=== PATIENT | female | born 1975 | race Caucasian/White ===

== ENCOUNTER 2022-01-16 05:15 | Day surgery (SDC) | payer BC ==
[2022-01-14 11:46] LABS: BASOPHILS # (AUTO) 0.1 K/uL (0.0-0.2); BASOPHILS % (AUTO) 0.7 % (0.0-2.0); EOSINOPHILS # (AUTO) 0.7 K/uL (0.0-0.4); EOSINOPHILS % (AUTO) 8.4 % (0.0-4.0); HEMATOCRIT 38.5 % (36-48); LYMPHOCYTES # (AUTO) 2.3 K/uL (1.0-5.5); LYMPHOCYTES % (AUTO) 28.3 % (20.5-51.5); MEAN CORPUSCULAR HEMOGLOBIN 30 pg (27-31); MEAN CORPUSCULAR HGB CONC 34 % (32-36); MEAN CORPUSCULAR VOLUME 89 fL (79.0-98.0); MONOCYTES # (AUTO) 0.5 K/uL (0.0-1.0); MONOCYTES % (AUTO) 5.7 % (1.7-9.3); NEUTROPHILS # (AUTO) 4.6 K/uL (1.8-7.7); NEUTROPHILS % (AUTO) 56.9 % (40.0-70.0); PLATELET COUNT (AUTO) 326 K/uL (130-430); RED BLOOD CELL COUNT(AUTO) 4.33 MIL/uL (4.2-6.2); RED CELL DISTRIBUTION WIDTH 14.5 % (9.0-15.0)
[2022-01-14 12:08] LABS: BILIRUBIN,URINE NEGATIVE (NEGATIVE); CLARITY/URINE CLEAR (CLEAR); COLOR,URINE YELLOW (YELLOW); GLUCOSE,URINE NEGATIVE (NEGATIVE); KETONES,URINE NEGATIVE (NEGATIVE); LEUKOCYTE ESTERASE ,URINE NEGATIVE (NEGATIVE); NITRITE, URINE NEGATIVE (NEGATIVE); PH,URINE 6.5 (5.0-8.0); PROTEIN URINE NEGATIVE (NEGATIVE); UROBILINOGEN,URINE 0.2 (0.2-1.0)
[2022-01-14 12:10] LABS: BLOOD, URINE TRACE (NEGATIVE)
[2022-01-14 12:54] LABS: BACTERIA,URINE None Seen /HPF (None Seen); RBC,URINE 0-3 /HPF (0-3); WBC,URINE 0-3 /HPF (0-3)
[2022-01-14 13:19] LABS: ALBUMIN 3.8 g/dL (3.4-4.8); CALCIUM 9.1 mg/dL (8.4-11.0); CREATININE 0.91 mg/dL (0.55-1.30); POTASSIUM 4.3 mmol/L (3.5-5.1); TOTAL BILIRUBIN 0.4 mg/dL (0.0-1.0)
[~2022-01-16] VITALS: Ht 172.7 cm; Wt 72.1 kg
[2022-01-16] MEDS ORDERED: ceFAZolin SODIUM 2 GM in D5W 50 ML IV ONE (07:30)
[2022-01-16] MEDS ORDERED: ROPIVACAINE HCL/PF 0.2% EPIDURAL 100 ML PLAST..BAG ONE (07:45)
[2022-01-16] MEDS ORDERED: LR 1,000 ML IV.SOLN IV ONE (07:45)
[2022-01-16] MEDS ORDERED: MIDAZOLAM HCL 2 MG/2 ML VIAL (VERSED) ONE (07:45)
[2022-01-16] MEDS ORDERED: FUROSEMIDE 40 MG/4 ML VIAL ONE (07:45)
[2022-01-16] MEDS ORDERED: DEXAMETHASONE SOD PHOSPHATE 4 MG/ML VIAL ONE (07:45)
[2022-01-16] MEDS ORDERED: DESFLURANE 15 MIN GAS INH ONE (07:45)
[2022-01-16] MEDS ORDERED: BUPIVACAINE /PF 0.25% 30 ML VIAL INJ ONE (07:45)
[2022-01-16] MEDS ORDERED: KETOROLAC TROMETHAMINE 30 MG VIAL ONE ×2 (07:45→12:56)
[2022-01-16] MEDS ORDERED: PROPOFOL 200MG/ 20ML VIAL (DIPRIVAN) IV ONE (07:45)
[2022-01-16] MEDS ORDERED: SUGAMMADEX SODIUM 200 MG/2 ML VIAL IV ONE (07:45)
[2022-01-16] MEDS ORDERED: NS IRRIG SOLN 1000 ML IR ONE (07:45)
[2022-01-16] MEDS ORDERED: fentaNYL CITRATE/PF 100 MCG/2 ML AMP ONE (07:45)
[2022-01-16] MEDS ORDERED: ROCURONIUM BROMIDE 10 MG/ML (ZEMURON) ONE (07:45)
[2022-01-16] MEDS ORDERED: ONDANSETRON HCL 4 MG/2 ML VIAL ONE (07:45)
[2022-01-16] MEDS ORDERED: ACETAMINOPHEN I.V. 1000 MG 100 ML IV ONE (08:19)
[2022-01-16] MEDS ORDERED: METOCLOPRAMIDE HCL 10 MG/2 ML VIAL IVP PRN (09:00)
[2022-01-16] MEDS ORDERED: hydrALAZINE HCL 20 MG/ML VIAL IVP PRN (09:00)
[2022-01-16] MEDS ORDERED: LABETALOL 100 MG/ 20ML VIAL IVP PRN (09:00)
[2022-01-16] MEDS ORDERED: MEPERIDINE HCL/PF 25 MG/ML DISP.SYRIN IVP PRN (09:00)
[2022-01-16] MEDS ORDERED: HYDROmorphone 1 MG/ML INJ. CARTRIDGE IVP PRN (09:00)
[2022-01-16] MEDS ORDERED: MIDAZOLAM HCL 2 MG/2 ML VIAL (VERSED) IVP PRN (09:00)
[2022-01-16] MEDS ORDERED: LR 1,000 ML IV SCH (09:00)
[2022-01-16] MEDS ORDERED: HYDROcodone/ACETAMIN 5-325 MG TAB (NORCO/ VICODIN) PO PRN (10:30)
[2022-01-16] MEDS ORDERED: ONDANSETRON HCL 4 MG/2 ML VIAL IVP PRN (10:30)
[2022-01-16] MEDS ORDERED: OXYCODONE/ACETAMINOPHEN 5-325 TABLET PO PRN ×2 (10:30)
[2022-01-16] MEDS: HYDROmorphone 1 MG/ML INJ. CARTRIDGE IVP PRN ×3 (11:00→11:36)
[2022-01-16] MEDS ORDERED: HYDROmorphone 1 MG/ML INJ. CARTRIDGE ONE ×2 (11:00→11:38)
[2022-01-16 12:00] VITALS: BP_SYST 109
[2022-01-16] MEDS ORDERED: KETOROLAC TROMETHAMINE 30 MG VIAL IVP ONE (13:00)
== END 2022-01-16 15:45 | disposition home or self-care (01) ==
LOC: SDS 05:15 → SMU 05:15 → SDS 15:45
PROVIDERS: ATTEND Specialist
DX: N92.0 Excessive and frequent menstruation with regular cycle (principal); D25.1 Intramural leiomyoma of uterus; N72 Inflammatory disease of cervix uteri; D26.0 Other benign neoplasm of cervix uteri; R10.2 Pelvic and perineal pain; N93.8 Other specified abnormal uterine and vaginal bleeding; Z98.890 Other specified postprocedural states; Z88.0 Allergy status to penicillin; Z88.1 Allergy status to other antibiotic agents; Z79.899 Other long term (current) drug therapy
CPT/HCPCS: 71046; 80053; 81000; 84703; 85025; 36415 ×2; 93005; 58552; 88307; 87426; 64488; U0003; J3490 ×2; J1100; J1940; J1885; J3465; J2405; J2704; J2795; J3010; J1170; J7060; J7120; C1727; J0131; S2900; E0190

== ENCOUNTER 2022-01-22 08:45 | Inpatient (IN) | payer BC ==
[~2022-01-22] VITALS: Ht 172.7 cm; Wt 74.6 kg
--- NOTE | 2022-01-22 08:45 | NUR ---
RECEIVED PT FROM ADIN HOFFMAN. PT S/P HYSTERECTOMY OVER ONE WEEK AGO AND STATES SHE HAS INCREASED BLOATING AND DISCOMFORT. PT STATES LAST BM WAS 2 DAYS AGO, DENIES N/V/D/C. RESP E/U. ON R/A. HR 120. PT STATES PAIN 5/10 ABODMEN. PT HAS 5 SURGICAL SITE COVERED WITH STERI-STIPS ALL CDI, WITH ECCYMOSIS NOTED AND EACH SITE BUT NO S/S REDNESS OR SWELLING. PT AT BEDSIDE. SIDERAILS UP X2.
--- NOTE | 2022-01-22 08:47 | NUR ---
Patient to ER bed 04 for evaluation. Side rails up. Report given to ADIN Ross.
[2022-01-22 09:00] VITALS: BP_SYST 120
--- NOTE | 2022-01-22 09:25 | NUR ---
DR. QUINONEZ AT BEDSIDE TO ASSESS PT.
[2022-01-22] MEDS ORDERED: MORPHINE 4 MG INJ. 4 MG/ML VIAL IVP ONE ×2 (09:45)
[2022-01-22] MEDS ORDERED: NACL 0.9% 2,000 ML IV ONE (09:45)
[2022-01-22] MEDS ORDERED: ONDANSETRON HCL 4 MG/2 ML VIAL IVP ONE ×2 (09:45)
[2022-01-22] MEDS ORDERED: CEFEPIME 2 GM in D5W 100 ML IV ONE (09:45)
[2022-01-22] MEDS ORDERED: metroNIDAZOLE 500 mg/NS 100 ML IV ONE (09:45)
--- NOTE | 2022-01-22 09:58 | NUR ---
LABS AND URINE OBTAINED.
[2022-01-22] MEDS ORDERED: KETOROLAC TROMETHAMINE 30 MG VIAL IVP ONE (10:00)
[2022-01-22 10:04] LABS: BASOPHILS % (AUTO) 0.2 % (0.0-2.0); EOSINOPHILS # (AUTO) 0.9 K/uL (0.0-0.4); EOSINOPHILS % (AUTO) 5.9 % (0.0-4.0); HEMATOCRIT 40.9 % (36-48); HEMOGLOBIN 14.1 g/dL (12.0-16.0); LYMPHOCYTES # (AUTO) 1.5 K/uL (1.0-5.5); LYMPHOCYTES % (AUTO) 9.6 % (20.5-51.5); MEAN CORPUSCULAR HEMOGLOBIN 30 pg (27-31); MEAN CORPUSCULAR HGB CONC 35 % (32-36); MEAN CORPUSCULAR VOLUME 88 fL (79.0-98.0); MONOCYTES % (AUTO) 6.7 % (1.7-9.3); NEUTROPHILS # (AUTO) 12.2 K/uL (1.8-7.7); NEUTROPHILS % (AUTO) 77.6 % (40.0-70.0); PLATELET COUNT (AUTO) 428 K/uL (130-430); RED BLOOD CELL COUNT(AUTO) 4.65 MIL/uL (4.2-6.2); RED CELL DISTRIBUTION WIDTH 13.5 % (9.0-15.0); WHITE BLOOD COUNT (AUTO) 15.7 K/uL (4.8-10.8)
[2022-01-22 10:24] LABS: INR 0.9 (0.8-1.2); PROTHROMBIN TIME 9.9 SECS (9.5-12.5)
[2022-01-22 10:38] LABS: CALCIUM 11.5 mg/dL (8.4-11.0); CREATININE 6.34 mg/dL (0.55-1.30); POTASSIUM 4.5 mmol/L (3.5-5.1)
[2022-01-22 10:44] LABS: ALBUMIN 3.9 g/dL (3.4-4.8); TOTAL BILIRUBIN 0.3 mg/dL (0.0-1.0)
[2022-01-22 10:54] LABS: ERYTHROCYTE SEDIMENTATION RATE 19 MM/HR (0-20)
--- NOTE | 2022-01-22 14:20 | NUR ---
KIRK CATH 18FR PLACED, 10ML INFLATED INTO [place], 1000ML LIGHT YELLOW CLOUDY URINE OUTPUT. URINE SAMPLE OBTAINED.
--- NOTE | 2022-01-22 14:22 | NUR ---
DR. QUINONEZ AND DR. PIZARRO AT BEDSIDE.
[2022-01-22 14:29] LABS: BILIRUBIN,URINE NEGATIVE (NEGATIVE); BLOOD, URINE 3+ (NEGATIVE); CLARITY/URINE SL CLOUDY (CLEAR); COLOR,URINE YELLOW (YELLOW); GLUCOSE,URINE TRACE (NEGATIVE); KETONES,URINE NEGATIVE (NEGATIVE); LEUKOCYTE ESTERASE ,URINE TRACE (NEGATIVE); NITRITE, URINE NEGATIVE (NEGATIVE); PH,URINE 7.5 (5.0-8.0); PROTEIN URINE 3+ (NEGATIVE); UROBILINOGEN,URINE 0.2 (0.2-1.0)
[2022-01-22] MEDS ORDERED: LACTULOSE 20 GM/30 ML UDC PO ONE (14:45)
[2022-01-22 15:00] LABS: BACTERIA,URINE RARE /HPF (None Seen); MUCUS,URINE None Seen /LPF (None Seen); RBC,URINE 50-80 /HPF (0-3); WBC,URINE 50-80 /HPF (0-3)
--- NOTE | 2022-01-22 15:08 | NUR ---
Admit bed requested Patient will be admitted to care of Dr. PIZARRO. Admitted to MED/SURG unit. Diagnosis HYPONATREMIA Inpatient (Yes or No) YES Observation (Yes or No) NO Orientation concerns or request close to nursing station (Yes or No) NO Covid Status NEGATIVE On vent or bipap NO Isolation requirements NONE Needs a sitter NO From Home (Yes or if No enter name of facility) YES, FROM HOME Requires Dialysis (Yes or No) NO Med Rec Completed (Yes of No) YES, PT HAS NO HOME MEDICATIONS
[2022-01-22 15:50] LABS: CREATININE 6.17 mg/dL (0.55-1.30); POTASSIUM 4.6 mmol/L (3.5-5.1)
[2022-01-22] MEDS: NACL 0.9% 1,000 ML IV SCH ×3 (16:10→22:46)
[2022-01-22] MEDS ORDERED: IPRATROPIUM/ALBUTEROL SULFATE 3 ML AMPUL.NEB (DUONEB) INH PRN (16:30)
[2022-01-22 16:57] VITALS: BP_SYST 120
--- NOTE | 2022-01-22 17:12 | NUR ---
CALLED TO GIVE REPORT TO [facility] FOR PT TO TRANSFER, DINING ROOM SUPERVISOR STATED MEHRDAD WILL CALL ER WHEN SHE IS READY FOR THE PT TO TRANSFER.
--- NOTE | 2022-01-22 19:30 | NUR ---
ENDORSED ALL CARE TO ADIN CHAVEZ. ALL QUESTIONS AND CONCERNS ADDRESSED.
--- NOTE | 2022-01-22 20:00 | NUR ---
Patient will be admitted to care of Dr. Kent. Admitted to med surg unit. Will go to room 116B. Belongings list completed. Complete and up to date summary report printed. SBAR report given to Goldy OAKLEY at bedside with opportunity for questions.
[2022-01-22 20:30] VITALS: BP_SYST 105
[2022-01-22] MEDS: LACTULOSE 20 GM/30 ML UDC PO SCH (20:54)
[2022-01-22 21:42] LABS: CALCIUM 10.1 mg/dL (8.4-11.0); CREATININE 5.1 mg/dL (0.55-1.30); POTASSIUM 4.5 mmol/L (3.5-5.1)
[2022-01-22] MEDS ORDERED: OXYCODONE/ACETAMINOPHEN 5-325 TABLET PO PRN (22:15)
[2022-01-22] MEDS ORDERED: ACETAMINOPHEN 325 MG TABLET PO PRN (22:15)
--- NOTE | 2022-01-22 22:17 | NUR ---
Spoke to Dr. Kent and made him aware of the urinalysis result, urine culture is still pending. Received orders of pain medications and IV ATB of Rocephin. Order made, noted, and carried out.
[2022-01-22] MEDS: OXYCODONE/ACETAMINOPHEN *10*mg/325 mg TABLET PO PRN (22:33)
[2022-01-22] MEDS ORDERED: cefTRIAXone 1 GM VIAL ONE (22:49)
[2022-01-23] MEDS: MORPHINE 4 MG INJ. 4 MG/ML VIAL IVP PRN ×5 (00:01→16:15)
[2022-01-23] MEDS: cefTRIAXone 1 GM in D5W 50 ML IV SCH ×2 (00:01→22:45)
--- NOTE | 2022-01-23 00:57 | NUR ---
Dr. Kent ordered to enter NSAIDS as allergy d/t patient is on acute kidney injury.
--- NOTE | 2022-01-23 03:25 | NUR ---
CONSULTATION PAGED/CALLED Reason for Consultation: POST HYSTERECTOMY Person Who was Notified: RODGER Consulting Physician: ARASH CARLSON Table Games Supervisor Specialty: Ordering Physician: MOIRA
[2022-01-23] MEDS: NACL 0.9% 1,000 ML IV SCH ×5 (03:58→22:53)
[2022-01-23 06:40] LABS: BASOPHILS % (AUTO) 0.3 % (0.0-2.0); EOSINOPHILS # (AUTO) 0.7 K/uL (0.0-0.4); EOSINOPHILS % (AUTO) 4.7 % (0.0-4.0); HEMATOCRIT 37.9 % (36-48); HEMOGLOBIN 13.1 g/dL (12.0-16.0); LYMPHOCYTES # (AUTO) 1.1 K/uL (1.0-5.5); LYMPHOCYTES % (AUTO) 7.6 % (20.5-51.5); MEAN CORPUSCULAR HEMOGLOBIN 30 pg (27-31); MEAN CORPUSCULAR HGB CONC 35 % (32-36); MEAN CORPUSCULAR VOLUME 88 fL (79.0-98.0); MONOCYTES % (AUTO) 7.4 % (1.7-9.3); NEUTROPHILS # (AUTO) 11.2 K/uL (1.8-7.7); PLATELET COUNT (AUTO) 389 K/uL (130-430); RED BLOOD CELL COUNT(AUTO) 4.32 MIL/uL (4.2-6.2); RED CELL DISTRIBUTION WIDTH 13.5 % (9.0-15.0); WHITE BLOOD COUNT (AUTO) 14.1 K/uL (4.8-10.8)
[2022-01-23 08:00] VITALS: BP_SYST 113
--- NOTE | 2022-01-23 08:00 | NUR ---
OPENING NOTE C/O ABDOMINAL PAIN 01/16 COMFORT CARE PROVIDED AND PRN MEDICATION GIVEN. S/P LAP HYSTERECTOMY WITH PRESENCES OF BRUISES TO ABDOMINAL INCISIONS. PT TOOK SHOWER AT HOME STERI-STRIP DRESSINGS SLIGHTLY WET. NO DRAINAGE ON INCISION SITES. PT STATES THAT SHE WENT HOME WITH ON-Q PUMP POST SURGERY NOTED WITH DRESSING TO LEFT ABDOMEN. PROVIDED INCENTIVE SPIROMETER AND EDUCATED THE PROPER WAY TO USE OF IT. PT VERBALIZED UNDERSTANDING AND ABLE TO USE 1500ML PROPERLY. DUE TO PREVIOUS SURGERY, PT IS PRONE TO BLOOD CLOT. PT STATES THAT SHE IS UNABLE TO AMBULATE DUE TO PAIN. SCD PROVIDED AND APPLIED TO BILATERAL LOWER EXTREMITIES. PT TOLERATED CLEAR LIQUID DIET. NO VOMITING C/O SLIGHT NAUSEA. WITH ELEVATED BUN/CREA CONTINUED WITH IV HYDRATION IV SITE INTACT. POSITIVE UTI ON ANTIBIOTIC. AWAITING URINE CULTURE.
[2022-01-23 08:02] LABS: ALBUMIN 2.9 g/dL (3.4-4.8); CALCIUM 9.1 mg/dL (8.4-11.0); CREATININE 3.07 mg/dL (0.55-1.30); PHOSPHORUS 5.3 mg/dL (2.7-4.5); POTASSIUM 4.1 mmol/L (3.5-5.1); TOTAL BILIRUBIN 0.2 mg/dL (0.0-1.0)
[2022-01-23] MEDS: LACTULOSE 20 GM/30 ML UDC PO SCH ×2 (08:14→21:00)
--- NOTE | 2022-01-23 10:45 | NUR ---
AMBULATION PT COMPLAINT OF ON AND OFF SHARP PAIN TO RIGHT LATERAL ABDOMEN. PAIN MED GIVEN. ASSISTED WITH AMBULATION C/O SHARP PAIN ON RIGHT ABDOMEN. PT ABLE TO WALK APPROXIMATELY 10 FEET AND BACK TO BED. ENCOURAGED REPOSITION SIDE TO SIDE. WILL CONTINUE TO MONITOR.
[2022-01-23] MEDS: OXYCODONE/ACETAMINOPHEN *10*mg/325 mg TABLET PO PRN (10:50)
[2022-01-23] MEDS ORDERED: ONDANSETRON HCL 4 MG/2 ML VIAL IVP PRN (11:15)
[2022-01-23 12:36] VITALS: BP_SYST 113
[2022-01-23] MEDS ORDERED: BISACODYL 10 MG/SUPPOSITORY RC ONE ×2 (15:45→21:00)
[2022-01-23] MEDS ORDERED: METOCLOPRAMIDE HCL 10 MG/2 ML VIAL IVP ONE (15:45)
[2022-01-23 16:01] VITALS: BP_SYST 99
[2022-01-23] MEDS ORDERED: LACTULOSE 20 GM/30 ML UDC PO ONE (17:15)
[2022-01-23] MEDS ORDERED: KETOROLAC TROMETHAMINE 30 MG VIAL IVP SCH (18:00)
--- NOTE | 2022-01-23 18:27 | NUR ---
CLOSING NOTE PT AMBULATED WITH ASSISTANCE X2 DURING SHIFT. ABLE TO WALK ALONG THE HALLWAY WITH ASSISTANCE. PT SITS ON CHAIR OCCASIONALLY. REINFORCE THE EDUCATION REGARDING THE USE OF INCENTIVE SPIROMETER AND SCD. DR. PIZARRO WAS AT BEDSIDE ASSESSING PT. RECEIVED NEW ORDER TO HELP WITH HER BM AND PAIN. KIRK DRAINING BY GRAVITY. IV FLUID RUNNING AND REMAIN PATENT.
[2022-01-23 20:06] LABS: CALCIUM 8.7 mg/dL (8.4-11.0); CREATININE 1.51 mg/dL (0.55-1.30); POTASSIUM 4.5 mmol/L (3.5-5.1)
--- NOTE | 2022-01-23 20:30 | NUR ---
Bowel movement Pt walked to the bathroom and had a large bowel movement.
[2022-01-23 20:40] VITALS: BP_SYST 124
[2022-01-23] MEDS: METOCLOPRAMIDE HCL 10 MG/2 ML VIAL IVP SCH (22:44)
[2022-01-23] MEDS: SIMETHICONE 80 MG TAB.CHEW PO SCH (22:45)
[2022-01-23] MEDS: MORPHINE SULFATE 30 MG Immediate Release TABLET PO PRN (22:57)
[2022-01-24] VITALS: BP_SYST 117
[2022-01-24] MEDS: METOCLOPRAMIDE HCL 10 MG/2 ML VIAL IVP SCH ×2 (03:15→08:41)
[2022-01-24] MEDS: NACL 0.9% 1,000 ML IV SCH (03:16)
--- NOTE | 2022-01-24 06:05 | NUR ---
Closing notes Pt asleep, no s/s distress noted. IVF infusing L. AC 20G no s/s infiltration noted. Pt ambulated to the bathroom x3 and had a BM x2, linens/gown changed. Resendiz catheter draining to gravity with yellow urine. Call light within reach. Bed low, locked, siderails up x3. To endorse to AM nurse.
[2022-01-24 06:41] LABS: BASOPHILS % (AUTO) 0.3 % (0.0-2.0); EOSINOPHILS # (AUTO) 0.3 K/uL (0.0-0.4); HEMATOCRIT 34.2 % (36-48); HEMOGLOBIN 11.7 g/dL (12.0-16.0); LYMPHOCYTES % (AUTO) 6.9 % (20.5-51.5); MEAN CORPUSCULAR HEMOGLOBIN 30 pg (27-31); MEAN CORPUSCULAR HGB CONC 34 % (32-36); MEAN CORPUSCULAR VOLUME 88 fL (79.0-98.0); NEUTROPHILS % (AUTO) 83.8 % (40.0-70.0); PLATELET COUNT (AUTO) 374 K/uL (130-430); RED BLOOD CELL COUNT(AUTO) 3.87 MIL/uL (4.2-6.2); RED CELL DISTRIBUTION WIDTH 13.2 % (9.0-15.0); WHITE BLOOD COUNT (AUTO) 14.4 K/uL (4.8-10.8)
[2022-01-24 07:00] VITALS: BP_SYST 93
[2022-01-24 07:02] LABS: ALBUMIN 2.2 g/dL (3.4-4.8); CALCIUM 8.2 mg/dL (8.4-11.0); CREATININE 0.91 mg/dL (0.55-1.30); POTASSIUM 4.5 mmol/L (3.5-5.1); TOTAL BILIRUBIN 0.2 mg/dL (0.0-1.0)
[2022-01-24 08:00] VITALS: BP_SYST 93
[2022-01-24] MEDS: LACTULOSE 20 GM/30 ML UDC PO SCH ×3 (08:41→21:55)
[2022-01-24] MEDS: SIMETHICONE 80 MG TAB.CHEW PO SCH ×3 (08:41→21:54)
[2022-01-24] MEDS: MORPHINE SULFATE 30 MG Immediate Release TABLET PO PRN ×3 (10:40→21:47)
[2022-01-24 12:07] VITALS: BP_SYST 94
[2022-01-24 16:42] VITALS: BP_SYST 96
--- NOTE | 2022-01-24 19:10 | NUR ---
OPENING NOTES PATIENT RESTING, NO SIGNS OF DISTRESS NOTED. CALL LIGHT WITHIN REACH, PATIENT DEMONSTRATES PROPER CALL LIGHT USAGE. BED ALARM ON, BED AT LOWEST POSITION, BED LOCKED. FALL, RESPIRATORY, ASPIRATION, AND SAFETY PRECAUTIONS IN PLACE. DISCUSSED PLAN OF CARE. RECEIVED REPORT THAT KIRK CATHETER HAS BEEN DISCONTINUED, NO ISSUES VOIDING AT THIS TIME. WILL CONTINUE TO MONITOR.
[2022-01-24 20:00] VITALS: BP_SYST 100
--- NOTE | 2022-01-24 20:45 | NUR ---
TRANSFER OF CARE TO ADIN ALCANTARA.
[2022-01-24] MEDS: cefTRIAXone 1 GM in D5W 50 ML IV SCH (22:15)
--- NOTE | 2022-01-24 22:30 | NUR ---
NOTED DISTENTION ON ABDOMEN, BLADDER SCANNED WAS PERFORMED AND IT WAS> 498 ML, SHE WENT AND VOIDED AT THIS TIME AND WAS MEASURED 400 ML AND SHE HAD BOWEL WAS MOSTLY LIQUID WELL AFTER.
--- NOTE | 2022-01-24 23:00 | NUR ---
PATIENT STATES SHE DOESN'T WANT KIRK. SHE FEEL THAT SHE CAN VOID NORMAL.
[2022-01-24] MEDS ORDERED: cefTRIAXone 1 GM IVPB PREMIX 50 ML IV ONE (23:10)
[2022-01-25 00:37] VITALS: BP_SYST 100
[2022-01-25 04:00] VITALS: BP_SYST 105
--- NOTE | 2022-01-25 04:25 | NUR ---
PT STILL HAS DISTENDED ABDOMEN, SEMI HARD. SHE DENIES PAIN.
[2022-01-25 06:48] LABS: BASOPHILS # (AUTO) 0.1 K/uL (0.0-0.2); BASOPHILS % (AUTO) 0.5 % (0.0-2.0); EOSINOPHILS # (AUTO) 0.9 K/uL (0.0-0.4); EOSINOPHILS % (AUTO) 8.1 % (0.0-4.0); HEMATOCRIT 31.7 % (36-48); HEMOGLOBIN 10.8 g/dL (12.0-16.0); LYMPHOCYTES # (AUTO) 1.9 K/uL (1.0-5.5); LYMPHOCYTES % (AUTO) 16.5 % (20.5-51.5); MEAN CORPUSCULAR HEMOGLOBIN 30 pg (27-31); MEAN CORPUSCULAR HGB CONC 34 % (32-36); MEAN CORPUSCULAR VOLUME 89 fL (79.0-98.0); MONOCYTES # (AUTO) 0.9 K/uL (0.0-1.0); MONOCYTES % (AUTO) 8.1 % (1.7-9.3); NEUTROPHILS # (AUTO) 7.6 K/uL (1.8-7.7); NEUTROPHILS % (AUTO) 66.8 % (40.0-70.0); PLATELET COUNT (AUTO) 354 K/uL (130-430); RED BLOOD CELL COUNT(AUTO) 3.57 MIL/uL (4.2-6.2); RED CELL DISTRIBUTION WIDTH 13.5 % (9.0-15.0); WHITE BLOOD COUNT (AUTO) 11.3 K/uL (4.8-10.8)
[2022-01-25 08:05] LABS: CALCIUM 7.9 mg/dL (8.4-11.0); CREATININE 0.71 mg/dL (0.55-1.30); POTASSIUM 4.3 mmol/L (3.5-5.1)
[2022-01-25] MEDS: MORPHINE SULFATE 30 MG Immediate Release TABLET PO PRN ×3 (08:24→21:34)
[2022-01-25] MEDS: SIMETHICONE 80 MG TAB.CHEW PO SCH ×3 (08:25→21:31)
[2022-01-25] MEDS: LACTULOSE 20 GM/30 ML UDC PO SCH ×2 (08:26→21:32)
[2022-01-25 11:50] VITALS: BP_SYST 116
[2022-01-25 16:30] VITALS: BP_SYST 117
--- NOTE | 2022-01-25 19:30 | NUR ---
opening receive pt from day nurse, pt in bed alert, awake and stable at this time. no c/o pain or distress noted. skin warm to touch and clean and dry. pt has 20g to right arm patent and intact. vitals taken and within normal limits resp even while on RA. PT refuse ivf, abx and meds for this evening. i explain to pt risk and benefits pt stated " ok " and to put in chart she refused. call light in reach bed to lowest position. Addendum: 01/25/22 at 2350 by Lyndsey Ordonez RN RN error
[2022-01-25 20:00] VITALS: BP_SYST 117
[2022-01-25 21:12] VITALS: BP_SYST 142
[2022-01-25] MEDS: cefTRIAXone 1 GM in D5W 50 ML IV SCH (21:33)
--- NOTE | 2022-01-25 23:05 | NUR ---
Bladder scan 76 mL. Patient reports no difficulties voiding.
[2022-01-26 00:01] VITALS: BP_SYST 114
--- NOTE | 2022-01-26 06:48 | NUR ---
Bladder scan done. Post void residual 61 mL. Patient reported one large loose bowel movement and is passing gas. Given morphine once last night but reports tolerable pain level this morning. Abdomen still slightly distended. Ambulatory with steady gait to bathroom. Encouraged to ambulate and continue to use IS. Call light in reach, bed low and locked.
[2022-01-26 08:16] VITALS: BP_SYST 137
[2022-01-26] MEDS: SIMETHICONE 80 MG TAB.CHEW PO SCH (08:43)
[2022-01-26] MEDS: LACTULOSE 20 GM/30 ML UDC PO SCH (08:43)
[2022-01-26] MEDS ORDERED: MULTIVITS,CA,MINERALS/IRON/FA 1 TABLET PO SCH (09:00)
[2022-01-26] MEDS ORDERED: CHOLECALCIFEROL (VITAMIN D3) 2,000 UNIT TABLET PO SCH (09:00)
[2022-01-26] MEDS: MORPHINE SULFATE 30 MG Immediate Release TABLET PO PRN (10:35)
[2022-01-26 10:46] LABS: BASOPHILS # (AUTO) 0.1 K/uL (0.0-0.2); BASOPHILS % (AUTO) 0.6 % (0.0-2.0); EOSINOPHILS # (AUTO) 0.8 K/uL (0.0-0.4); EOSINOPHILS % (AUTO) 8.8 % (0.0-4.0); HEMOGLOBIN 11.3 g/dL (12.0-16.0); LYMPHOCYTES # (AUTO) 1.4 K/uL (1.0-5.5); LYMPHOCYTES % (AUTO) 14.8 % (20.5-51.5); MEAN CORPUSCULAR HEMOGLOBIN 30 pg (27-31); MEAN CORPUSCULAR HGB CONC 34 % (32-36); MEAN CORPUSCULAR VOLUME 88 fL (79.0-98.0); MONOCYTES # (AUTO) 0.8 K/uL (0.0-1.0); MONOCYTES % (AUTO) 8.3 % (1.7-9.3); NEUTROPHILS # (AUTO) 6.3 K/uL (1.8-7.7); NEUTROPHILS % (AUTO) 67.5 % (40.0-70.0); PLATELET COUNT (AUTO) 406 K/uL (130-430); RED BLOOD CELL COUNT(AUTO) 3.76 MIL/uL (4.2-6.2); WHITE BLOOD COUNT (AUTO) 9.3 K/uL (4.8-10.8)
[2022-01-26 11:00] LABS: CREATININE 0.81 mg/dL (0.55-1.30); POTASSIUM 4.1 mmol/L (3.5-5.1)
--- NOTE | 2022-01-26 14:15 | NUR ---
BLADDER SCAN BLADER SCAN DONE. POST VOID RESIDUAL 83 ML.PT DENIES ANY PAIN. ABD MODERATELY DISTENDED. PT AMBULATED TO BATHROOM WITH STEADY GAIT. NOTIN ACUTE DISTRESS. WILL NOTIFY DR PIZARRO.
--- NOTE | 2022-01-26 14:26 | NUR ---
0730 Pt. in bed, aaox4, vss, no acute distress, call light in reach 1200 Pt. medicated for pain with good results, vss, no distress, tolerating diet 1400 Pt. resting quietly, no distress, ambulating in hallway and voiding without difficulty
[2022-01-26 14:40] VITALS: BP_SYST 127
--- NOTE | 2022-01-26 15:24 | NUR ---
1515 Pt. going home, dc per chg. nurse who took verbal from . to put order in chart. Vss, all belongings accounted for, IV dc'd with canula intact, verbalized understanding of dc instructions, pt. to make appt with surgeon for follow up. Left via wc, aaox4, vss, no distress, left in private vehicle.
== END 2022-01-26 15:15 | disposition home or self-care (01) | DRG 683 ==
LOC: SED 08:45 → SMU 14:34
PROVIDERS: ADMIT Internal Medicine; ATTEND Internal Medicine
DX: N17.9 Acute kidney failure, unspecified (principal); J90 Pleural effusion, not elsewhere classified; K56.7 Ileus, unspecified; N39.0 Urinary tract infection, site not specified; R18.8 Other ascites; S30.1XXA Contusion of abdominal wall, initial encounter; N13.9 Obstructive and reflux uropathy, unspecified; J45.909 Unspecified asthma, uncomplicated; K59.00 Constipation, unspecified; X58.XXXA Exposure to other specified factors, initial encounter; Z20.822 Contact with and (suspected) exposure to COVID-19; Y93.89 Activity, other specified; Y92.89 Other specified places as the place of occurrence of the external cause; Y99.8 Other external cause status; Z79.899 Other long term (current) drug therapy; Z88.0 Allergy status to penicillin; Z90.710 Acquired absence of both cervix and uterus; Z98.891 History of uterine scar from previous surgery; Z88.1 Allergy status to other antibiotic agents; Z88.2 Allergy status to sulfonamides
CPT/HCPCS: 36415; 71045; 74018; 76376; 76770; 80048; 80053; 81000; 82550; 83605; 83690; 83735; 84100; 85025; 85379; 85610-TC; 85651-TC; 87040; 87086; 96374; 96375; 96376; 99285; J0692; J0696; J1885; J2270; J2274; J2405; J2765; J3490; J7060

== ENCOUNTER 2023-10-19 11:37 | Emergency (ER) | payer BC ==
[~2023-10-19] VITALS: Ht 172.7 cm; Wt 66.2 kg
[2023-10-19 12:04] VITALS: BP_SYST 109; PULSE 73; RESP 16; TEMP 97.9; O2SAT 96
[2023-10-19] MEDS ORDERED: CLIN-22 PO (13:15)
[2023-10-19] MEDS ORDERED: TRAM50TA2 PO (13:16)
[2023-10-19] MEDS: traMADol HCL HCL 50 MG TABLET (ULTRAM) PO ONE (13:50)
[2023-10-19 14:47] VITALS: BP_SYST 109; PULSE 73; RESP 16; TEMP 97.9; O2SAT 96
== END 2023-10-19 14:47 | disposition home or self-care (01) ==
LOC: SED 11:37
DX: K08.89 Other specified disorders of teeth and supporting structures (principal); M79.7 Fibromyalgia; Z88.0 Allergy status to penicillin; Z88.1 Allergy status to other antibiotic agents; Z88.2 Allergy status to sulfonamides; Z88.8 Allergy status to other drugs, medicaments and biological substances; Z90.710 Acquired absence of both cervix and uterus; Z79.899 Other long term (current) drug therapy
CPT/HCPCS: 99283